=== PATIENT | female | born 1965 | race Two or more races ===

== ENCOUNTER 2016-07-12 10:19 | Day surgery (SDC) | payer MEDICAID ==
[2016-07-12 12:57] LABS: ABSOLUTE NEUTROPHIL COUNT 5.2 K/mm3 (1.8-7.7); BASO % 0.4 % (0.2-1.0); EOS % 0.1 % (0.9-2.9); HEMOGLOBIN 14.6 gm/l (12.0-16.0); IMM NEUT% 0.1 % (0-1); LYMPH # 1.7 (1.0-4.8); LYMPH % 23.8 % (15-45); MEAN CELL VOLUME 86.7 fl (81.0-99.0); MEAN CORPUSCULAR HEMOGLOBIN 28.1 pg (27.0-31.0); MEAN CORPUSCULAR HGB CONC 32.4 g/dl (33.0-37.0); MEAN PLATELET VOLUME 11.4 fl (7.4-10.4); MONO # 0.3 (0.0-0.8); NEUT % 71.6 % (43-75); PLATELET COUNT 222 K/mm3 (130-400); RED CELL DISTRIBUTION WIDTH 13.3 % (11.5-14.5)
[2016-07-12 13:13] LABS: ALB/GLOB RATIO 1.3 (>1.0); ALBUMIN 4.1 gm/dL (3.5-5.7); CALCIUM 9.2 mg/dL (8.6-10.3)
--- NOTE | 2016-07-12 13:21 | RAD ---
Name: RICHARD CALVERT Exam: Two-view chest Comparison: None Clinical history: Cough Findings: 2 views of the chest are submitted. The heart mediastinum and hilar structures are within normal limits. There is no failure, infiltrate, pleural effusion or pneumothorax. 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 Impression: No acute cardiopulmonary process
[2016-07-12] MEDS ORDERED: ONDANSETRON 4 MG/2ML 2 ML VIAL ONE ×2 (13:37→14:22)
[2016-07-12] MEDS ORDERED: PIPERACILLIN-TAZO PREMIX BAG 50 ML IV ONE (13:37)
[2016-07-12] MEDS ORDERED: HYDROMORPHONE HCL 1 MG/ML SYRINGE ONE (13:37)
[2016-07-12] MEDS ORDERED: LIDOCAINE 1%/EPI 1:100,000 (MULTI DOSE) 30 ML VIAL ONE (14:12)
[2016-07-12] MEDS ORDERED: FENTANYL 250 MCG/5 ML AMP ONE (14:20)
[2016-07-12] MEDS ORDERED: ROCURONIUM BROMIDE 10 MG/ML DOSE IV ONE (14:20)
[2016-07-12] MEDS ORDERED: PROPOFOL 20 ML IV ONE (14:20)
[2016-07-12] MEDS ORDERED: DEXAMETHASONE SOD PHOS 4 MG/1 ML VIAL ONE (14:22)
[2016-07-12] MEDS ORDERED: MIDAZOLAM HCL 1 MG/ML 2ML VIAL ONE (14:25)
[2016-07-12] MEDS ORDERED: LACTATED RINGERS 1,000 ML ONE (14:34)
--- NOTE | 2016-07-12 14:49 | PDOC1 ---
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 50yo F with epigastric pain. This started 3 months ago. It is intermittent and worsened by eating food. The pain worsened yesterday, prompting her to go to the [facility]. There, she had a RUQ US that demonstrated gallstones and a positive sonographic Minetto sign, likely compatible with acute cholecystitis. I asked the patient what the intermediate accountant plan was and she stated that she was discharged with pain/nausea medication with plans for outpatient follow-up for potential surgery. The pain returned today, prompting visit to [facility]. The patient has had one bout of blood tinged emesis, subjective chills, and anorexia. The patient denies any recent F/CP/SOB, change in bladder fx, constipation, diarrhea, unintentional weight loss, easy bleeding/bruising, or other associated symptoms. REVIEW OF SYSTEMS CONSTITUTIONAL: As per HPI. EARS, NOSE, MOUTH, THROAT: ~No sneezing or runny nose CARDIOVASCULAR: ~As per HPI. RESPIRATORY: ~As per HPI. GASTROINTESTINAL: ~As per HPI. GENITOURINARY: ~As per HPI. NEUROLOGICAL: ~No history of seizures HEMATOLOGIC: ~As per HPI. MUSCULOSKELETAL: ~No change in strength. LYMPHATICS: ~No history of splenectomy. PSYCHIATRIC: ~No change in personality or affect PMH: None PSH: Meds: No regular medications (only pain/nausea prescribed at ED last night) All: NKDA SH: Denies smoking or EtOH FH: No FH of cancers Physical Exam: General/Constitutional: Vitals documented above, comfortable in NAD Psych: A&O x 3, normal judgment and insight. Recent and remote memory intact. Mood and affect normal. Eyes: Pupils equal, no scleral icterus Ears, Nose, Mouth, Throat: gross hearing intact Neck: Supple Heart: RRR, no LE edema Lungs: Equal rise and fall of chest wall, non-labored breathing, no audible wheezes Neuro: Gross sensation intact Abdomen: Soft, obese, ND, mild epigastric and RUQ TTP, no guarding, negative Minetto sign. Labs: CBC: 7.3/14.6/45.0/222 (0.1% bands) Chem: Cr 0.6, lytes normal LFTs: Tbili 0.5, other LFTs normal RUQ US (07/11/16 at [facility]): Gallstones and sludge, 5mm CBD, + sonographic Horn s sign. States no gallbladder wall thickness (but measurement not documented) and no mention of john-cholecystic fluid. A/P: 50yo F with intractable biliary colic vs. acute cholecystitis. She was given IV Zosyn in the ED. I recommend laparoscopic cholecystectomy. The operation and expected post-operative course were discussed at length. We discussed the risks of the operation to include, but not limited to: bleeding, pain, infection, scar, damage to surrounding structures (liver, small intestine , stomach, colon), damage to bile ducts (CBD injury risk 1/300), retained stone , bile leak, need for conversion to an open procedure, need for cholangiogram, need for additional procedures, failure to improve symptoms, and the risks of anesthesia (heart attack, arrhythmia, stroke, blood clot, and ). The patient understands these risks and agrees to proceed with surgery. Will proceed with laparoscopic cholecystectomy today. Ramses Hunt MD
[2016-07-12] MEDS ORDERED: PROMETHAZINE HCL 25 MG/ML VIAL IM PRN (15:23)
[2016-07-12] MEDS ORDERED: MEPERIDINE 25 MG/ML SYRINGE IV PRN (15:23)
[2016-07-12] MEDS ORDERED: ATROPINE SULFATE 0.4 MG/1 ML VIAL IV PRN (15:23)
[2016-07-12] MEDS ORDERED: HYDROMORPHONE HCL 1 MG/ML SYRINGE IV PRN (15:23)
[2016-07-12] MEDS ORDERED: HYDRALAZINE HCL 20 MG/1 ML VIAL IV PRN (15:23)
[2016-07-12] MEDS ORDERED: NALOXONE HCL 0.4 MG/ML VIAL IV PRN (15:23)
[2016-07-12] MEDS ORDERED: ONDANSETRON 4 MG/2ML 2 ML VIAL IV PRN ×2 (15:23→19:00)
[2016-07-12] MEDS ORDERED: LABETALOL HCL 5 MG/ML 20ML VIAL IV PRN (15:23)
[2016-07-12] MEDS ORDERED: LACTATED RINGERS 1,000 ML IV SCH ×2 (15:30→17:45)
[2016-07-12] MEDS ORDERED: KETOROLAC TROMETHAMINE 30 MG/ML 1 ML VIAL ONE (16:19)
--- NOTE | 2016-07-12 16:53 | PCMBPN ---
Brief Post Op Note: Date of Procedure: 07/12/16 Preoperative Diagnosis: 1. intractable biliary colic vs. acute cholecystitis Postoperative Diagnosis: 1. chronic cholecystitis Procedure: laparoscopic cholecystectomy Surgeon: Ramses Hunt Assist:Joana Olson Anesthesia: GETA Findings: Edematous and distended gallbladder requiring decompression Condition: stable Complications: none IV Fluids: 1100 mLs of LR Urine Output: 125 mLs Estimated Blood Loss: 5 mLs Tourniquet Time: N/A Specimens: Gallbladder Implants: N/A Drains: N/A
--- NOTE | 2016-07-12 16:53 | PCMON ---
OPERATIVE REPORT Date of Operation: 12 July 2016 Pre-Op Diagnosis: Intractable Biliary Colic vs. Acute Cholecystitis Post-Op Diagnosis: Chronic Cholecystitis Operation: Laparoscopic Cholecystectomy Surgeon: Isabel Mendez MD Patent Drafter: Joana Olson Anesthesia: GETA Pre-Operative Antibiotics: Zosyn, 3.375mg IV Specimen Sent to Lab: Gallbladder Infection Classification: 3 Estimated Blood Loss: 5mL Indication for Procedure: The patient is a 50 year old female with 3 months of intermittent epigastric and right upper quadrant pain after meals. The pain worsened yesterday where she presented to the [place] ER and an ultrasound demonstrated gallstones, sludge, and a positive sonographic [place] sign. Her WBC remains normal. These findings are consistent with a diagnosis of intractable biliary colic vs. acute cholecystitis. Description of Findings. The gallbladder was distended and edematous. It was decompressed with spillage of a small amount of bile. Intra-operative findings were consistent with chronic cholecystitis. Detailed Operative Report: The patient was met in the preoperative holding area by the operating team. All questions and concerns were addressed appropriately. She was then taken to the operating room where general anesthesia was induced. A Serna catheter was placed. The abdomen was prepped and draped in the normal, sterile fashion. Local anesthetic was injected into the proposed supra-umbilical incision site. The skin was incised. The fascia was elevated and incised. Direct entry into the peritoneum was confirmed and a 10-mm balloon trocar was inserted. The abdomen was insufflated to a pressure of 15 mmHg, which the patient tolerated well. The laparoscope was inserted and the abdomen was inspected. There were no injuries noted from initial trocar placement. A 5 mm trocar was placed in the epigastric position. Two additional 5 mm trocars were placed along the right costal margin. The table was placed in the reverse Trendelenburg position with the right side elevated. The fundus of the gallbladder was attempted to be grasped, but distension prevented this. The gallbladder was decompressed with a laparoscopic needle extracting over 100mL of thick black bile. The fundus was now grasped and retracted over the edge of the liver. The infundibulum was grasped and retracted towards the right lower quadrant. This maneuver exposed Calot's triangle. There were two tubular structures directly entering the gallbladder consistent with the cystic duct laterally and the cystic artery medially. These structures were circumferentially dissected. A critical view of safety was obtained. The cystic duct was triply clipped and divided. The cystic artery was similarly clipped and divided. The gallbladder was then dissected from its peritoneal attachments to the liver with electrocautery. The gallbladder was placed into an endoscopic retrieval bag and removed from the abdomen. The gallbladder fossa was thoroughly irrigated and hemostasis was ensured. Secondary trocars were removed under direct vision. The supra-umbilical trocar was removed, along with the specimen, and the abdomen was allowed to collapse. The fascia of the supra-umbilical site was closed with a 0 Vicryl suture in a [id number] fashion. All skin was closed with 4-0 Monocryl. The wounds were dressed with mastisol, steri-strips, and band-aids. The Serna catheter was removed. The patient was then awakened from anesthesia, extubated, and transported to the PACU without complication. Prior to closing, all sponge and instrument counts were correct. ISABEL MENDEZ MD
[2016-07-12] MEDS ORDERED: FENTANYL 100 MCG/2 ML VIAL ONE (17:20)
[2016-07-12] MEDS: FENTANYL 100 MCG/2 ML VIAL IV PRN ×2 (17:24→17:32)
[2016-07-12] MEDS ORDERED: MORPHINE SULFATE 2 MG/ML SYRINGE IV PRN (17:45)
[2016-07-12] MEDS ORDERED: OXYCODONE/ACETAMINOPHEN 5/325 MG TABLET PO PRN (17:45)
[2016-07-12 18:10] VITALS: BMI 33.5
[2016-07-12] MEDS ORDERED: PUMP TUBING ONE (19:07)
[2016-07-13 06:38] VITALS: BP 124/73
--- NOTE | 2016-07-13 10:08 | PDOC43 ---
- Subjective S: Pain improved, feels achy. Minimal tolerating of clears last night but tolerated breakfast well this AM. No other complaints. Physical Exam: General/Constitutional: Vitals documented above, comfortable in NAD Psych: A&O x 3, normal judgment and insight. Recent and remote memory intact. Mood and affect normal. Eyes: Pupils equal, no scleral icterus Ears, Nose, Mouth, Throat: gross hearing intact Neck: Supple Heart: RRR, no LE edema Lungs: Equal rise and fall of chest wall, non-labored breathing, no audible wheezes Neuro: Gross sensation intact Abdomen: Soft, obese, ND, appropriate TTP, no guarding. Incisions covered by band-aids that are clean and dry. A/P: 50yo F doing well POD#1 s/p laparoscopic cholecystectomy. Ready for discharge this AM. Ramses Hunt MD - Objective Vital Signs Temperature 97.7 F 07/13/16 06:38 Pulse Rate 70 07/13/16 06:38 Respiratory Rate 16 07/13/16 06:38 Blood Pressure 124/73 07/13/16 06:38 O2 Saturation by Pulse Oximetry 95 07/13/16 06:38 Oxygen Delivery Method Room Air Oxygen Flow Rate 0 Laboratory 07/12/16 12:45 07/12/16 12:45 07/12/16 12:45 MCHC 32.4 L Estimated GFR 107 H Lipase 5 L Active Medication Orders Category Date Time Status Lactated Ringers 1,000 ml Med 07/12/16 17:45 Active IV 75 mls/hr Morphine Sulfate Med 07/12/16 17:45 Active 1 - 2 mg IV Q2H PRN Ondansetron 4 mg/2ml Vial [Zofran] Med 07/12/16 19:00 Active 4 mg IV Q6H PRN Oxycodone HCl/Acetaminophen [Percocet 5/325] Med 07/12/16 17:45 Active 1 - 2 tab PO Q4H PRN Sodium Chloride 0.9% Flush [Normal Saline 10ml Flush] Med 07/12/16 17:56 Active 10 ml IV PRN PRN Sodium Chloride 0.9% Flush [Normal Saline 10ml Flush] Med 07/13/16 01:00 Active 10 ml IV Q8HR Intake and Output 07/11/16 07/12/16 07/13/16 22:59 23:59 23:59 Intake Total 1588 Output Total 700 Balance 888
--- NOTE | 2016-07-13 10:11 | PDOC5 ---
ADMIT DATE: 07/12/16 DISCHARGE DATE: 07/13/16 ADMISSION DIAGNOSES: intractable biliary colic/acute cholecystitis PROCEDURES PERFORMED THIS HOSPITALIZATION: laparoscopic cholecystectomy CONSULTATIONS: general surgery HOSPITAL COURSE: This is a 50 year old who presented with intractable biliary colic vs. acute cholecystitis. She underwent a laparoscopic cholecystecomy on , which she tolerated well. At the time of discharge, her pain was well controlled with oral pain medication, she was ambulating on her own, and she was tolerating a regular diet. She was discharged home on POD#1 in good condition. - Objective Vital Signs Temperature 97.7 F 07/13/16 06:38 Pulse Rate 70 07/13/16 06:38 Respiratory Rate 16 07/13/16 06:38 Blood Pressure 124/73 07/13/16 06:38 O2 Saturation by Pulse Oximetry 95 07/13/16 06:38 Oxygen Delivery Method Room Air Oxygen Flow Rate 0 - Discharge Plan Instruction Forms: Laparoscopic Cholecystectomy Forms: Discharge Instructions [place], Work Release Form Prescriptions: Naproxen [NAPROSYN 500 MG TABLET (SHF)] 500 mg PO BID #30 tablet Polyethylene Glycol 3350 [MIRALAX 17 G PACKET (SHF)] 17 g PO DAILY #1 bot Follow-Up: Georgie Haq MD [Staff Physician] -
--- NOTE | 2016-07-17 14:40 | SURGPATH ---
[facility] [address] [place] [id number] Patient Name: RICHARD HUTCHINS MR#: [id number] : 1965 Gender: F Specimen #: [id number] Collected: 07/12/2016 Received: 07/15/2016 Reported: 07/17/2016 Submitting Phys: ISABEL MENDEZ Copy To Phys: [facility] Clinical History / Pre-Operative Diagnosis: Cholecystitis Specimen Source / Surgical Procedure Performed: Gallbladder Interpretation: GALLBLADDER, CHOLECYSTECTOMY: - CHRONIC CHOLECYSTITIS WITH CHOLESTEROLOSIS Electronically Signed Out Ekaterina Fang M.D. Gross Description: The specimen is received in formalin labeled with the patient's name and "gallbladder". The specimen consists of a 9.0 x 4.0 x 4.0 cm intact dusky green gallbladder. The mucosa is dark green and velvety. No stones are present. 1A eligibility services representative including cystic duct NATAN Mckenzie Microscopic Description: Sections from the gallbladder show mild chronic inflammation and collections of foamy histiocytes within the lamina propria. 1: [id number] K81.1
== END 2016-07-13 11:30 | disposition home or self-care (01) ==
LOC: ED 10:19 → MS 13:34 → SDC 13:34
PROVIDERS: ATTEND Surgery
PROC: 0FT44ZZ Resection of Gallbladder, Percutaneous Endoscopic Approach (ICD-10-PCS; principal; 2016-07-12)
DX: K81.1 Chronic cholecystitis (principal)
CPT/HCPCS: 47562; 83690; 85025; 80053; 71020; 96375 ×2; 99284; 96365; 93005; 99285; J1170; J3010 ×2; J1100; J2270 ×2; A9270; J1885; J2250; J2001; J2405 ×3; J2543; J7120 ×2; J7030

== ENCOUNTER 2016-07-31 08:05 | Emergency (ER) | payer MEDICAID ==
[2016-07-31] MEDS ORDERED: IOPAMIDOL 370 (76%) IV.SOLN 150 ML IV ONE (08:06)
[2016-07-31] MEDS ORDERED: SODIUM CHLORIDE 0.9% 1,000 ML ONE (08:35)
[2016-07-31] MEDS ORDERED: ONDANSETRON 4 MG/2ML 2 ML VIAL ONE (08:35)
[2016-07-31] MEDS ORDERED: PANTOPRAZOLE SODIUM 40 MG VIAL IV ONE (08:36)
[2016-07-31 08:38] LABS: SPECIFIC GRAVITY 1.015 (1.001-1.030); URINE BILIRUBIN NEGATIVE (NEGATIVE); URINE BLOOD NEGATIVE (NEGATIVE); URINE GLUCOSE (UA) NEGATIVE (NEGATIVE); URINE LEUKOCYTE ESTERASE NEGATIVE (NEGATIVE); URINE NITRITE NEGATIVE (NEGATIVE); URINE PROTEIN NEGATIVE (NEGATIVE); URINE UROBILINOGEN NORMAL (0-1 mg/dl)
[2016-07-31 08:41] LABS: URINE APPEARANCE CLEAR; URINE COLOR YELLOW
[2016-07-31 08:50] LABS: ABSOLUTE NEUTROPHIL COUNT 4.9 K/mm3 (1.8-7.7); BASO % 0.4 % (0.2-1.0); EOS % 0.3 % (0.9-2.9); HEMOGLOBIN 15.1 gm/l (12.0-16.0); IMM NEUT% 0.1 % (0-1); LYMPH # 1.5 (1.0-4.8); LYMPH % 22.8 % (15-45); MEAN CORPUSCULAR HEMOGLOBIN 27.9 pg (27.0-31.0); MEAN CORPUSCULAR HGB CONC 32.8 g/dl (33.0-37.0); MONO # 0.3 (0.0-0.8); MONO % 3.7 % (4-12); NEUT % 72.7 % (43-75); PLATELET COUNT 266 K/mm3 (130-400); RED CELL DISTRIBUTION WIDTH 13.3 % (11.5-14.5)
[2016-07-31 09:14] LABS: ALB/GLOB RATIO 1.3 (>1.0); ALBUMIN 4.4 gm/dL (3.5-5.7); CALCIUM 9.7 mg/dL (8.6-10.3)
[2016-07-31] MEDS ORDERED: MAALOX/LIDO2%VISC/SIMETHICONE 40 ML BOT ONE (09:29)
[2016-07-31 09:46] LABS: HCG,QUALITATIVE URINE NEGATIVE
--- NOTE | 2016-07-31 10:25 | CT ---
Exam Type: ABD/PELVIS W/ CON Date and Time: 07/31/2016 9:56 AM Clinical information: Abdomen pain. Comparison: None Procedure: Imaging device: [employer] Aquilion [address] scanner 1 mm axial images were obtained through the abdomen and pelvis. Stacked reconstructed 3, 4 and 5 mm images were photographed in the axial coronal and sagittal planes. No oral contrast was utilized for this examination. 100 ml of Isovue-370 was injected intravenously. Exam: with intravenous contrast. FINDINGS: Lung bases: There is a minimal bibasilar atelectasis visualized. No effusion or pneumothorax is observed. Liver: the liver is homogeneous with no discrete abnormality visualized. No definite findings of biliary dilatation are observed. Spleen: The spleen is homogeneous and does not appear to be enlarged. Gallbladder: Surgically absent. Pancreas: Normal without enlargement or evidence of adjacent inflammatory changes. Adrenal glands: Normal without enlargement or evidence of adjacent inflammatory changes. Abdominal aorta: The aorta is of normal caliber and appears to be without significant atherosclerotic disease. Kidneys: The kidneys appear to be symmetric in size with no perinephric inflammatory changes are identified. No current findings of hydronephrosis are seen. Bowel structures: The visualized bowel is of normal caliber without evidence of dilatation or obstruction. No free fluid or mesenteric inflammatory changes are identified. Appendix: The appendix is well-visualized and appears to be of normal caliber. No periappendiceal inflammatory changes or CT findings of appendicitis are currently observed. Bladder: The bladder is of normal contour. No wall thickening or significant distention is observed. The bladder is mildly distended. Hernia: No abdominal wall or inguinal hernia is visualized on this examination. Adenopathy: A few mildly prominent right lower quadrant mesenteric lymph nodes are suggested. Osseous structures: No discrete osseous abnormalities are identified. Pelvic structures: No discrete pelvic abnormalities are visualized in this examination. IMPRESSION: 1. A normal appearance of the appendix without CT evidence of appendicitis. 2. No free fluid, free air or mesenteric inflammatory stranding observed within the abdomen or pelvis. 3. Prior cholecystectomy. 4. A few mildly prominent right lower quadrant mesenteric lymph nodes. 5. Mild distention of the bladder.
[2016-07-31] MEDS ORDERED: ACETAMINOPHEN 500 MG TABLET ONE (10:36)
== END 2016-07-31 11:39 | disposition home or self-care (01) ==
LOC: ED 08:05
DX: K29.70 Gastritis, unspecified, without bleeding (principal)
CPT/HCPCS: 83690; 81025; 82150; 85025; 80053; 81003; 84484; 74177; 96375; 99284 ×2; 96374; A9270 ×2; C9113; J2405; J7030; Q9967